=== PATIENT | female | born 1985 | race Caucasian/White ===

== ENCOUNTER 2019-03-29 08:58 | Outpatient (CLI) | payer BC ==
--- NOTE | 2019-03-29 09:31 | ULT ---
LIMITED RIGHT BREAST ULTRASOUND: Date: 03-29-19 Provided Clinical History: Right breast palpable abnormality. FINDINGS: Limited sonographic interrogation was performed at the 10 o'clock position of the right breast. The b reast parenchyma in this region demonstrates a normal sonographic appearance. IMPRESSION: No sonographic correlate for the reported palpable abnormality. Correlation with diagnostic mammograp hy is recommended. POS: OFF
--- NOTE | 2019-03-29 09:51 | ULT ---
LIMITED LEFT BREAST ULTRASOUND: Date: 03-29-19 Provided Clinical History: Left breast palpable abnormality. FINDINGS: Limited sonographic interrogation was performed of the left breast in the region of palpable concern. A 5-6 mm simple cyst is seen in this location. No concerning sonographic findings are evident. IMPRESSION: No concerning sonographic findings are present in the region of palpable concern. Correlation with di agnostic mammography. POS: OFF
== END 2019-03-29 08:59 | disposition home or self-care (01) ==
LOC: BICULT 08:58
PROVIDERS: ATTEND Student in an Organized Health Care Education/Training Program
DX: N63.10 Unspecified lump in the right breast, unspecified quadrant (principal)

== ENCOUNTER 2019-10-07 07:24 | Inpatient (IN) | payer BC ==
[2019-10-07 07:55] VITALS: BMI 29.0
[2019-10-07 08:20] LABS: Amnisure Test RUPTURE DETECTED (No Rupture)
[2019-10-07 08:21] LABS: Amnisure Internal Control QC ACCEPTABLE (ACCEPTABLE)
[2019-10-07] MEDS ORDERED: Methylergonovine 0.2 MG/ML VIAL IM PRN ×2 (08:34→19:42)
[2019-10-07] MEDS ORDERED: HYDROcodone/Acetaminophen 5/325 mg Tablet PO PRN ×4 (08:34→19:42)
[2019-10-07] MEDS ORDERED: Promethazine HCl 25 MG/ML VIAL IM PRN ×2 (08:34→16:33)
[2019-10-07] MEDS ORDERED: Misoprostol 200 MCG TAB PR PRN (08:34)
[2019-10-07] MEDS ORDERED: Ondansetron PF 4 MG/2 ML Vial IVP PRN ×3 (08:34→19:42)
[2019-10-07] MEDS ORDERED: hydrALAZINE 20 MG/ML VIAL SLOW IVP PRN ×2 (08:34→19:42)
[2019-10-07] MEDS ORDERED: Acetaminophen 500 MG TAB PO PRN (08:34)
[2019-10-07] MEDS ORDERED: Butorphanol Tartrate 1 MG/ML VIAL SLOW IVP PRN (08:34)
[2019-10-07] MEDS ORDERED: Lidocaine 1% (PF) 30 ML VIAL SC PRN (08:34)
[2019-10-07] MEDS ORDERED: Carboprost 250 MCG/ML AMP IM PRN (08:34)
[2019-10-07] MEDS ORDERED: Ibuprofen 800 MG TAB PO PRN (08:34)
[2019-10-07] MEDS ORDERED: NS / Oxytocin 40 units/1000ml 1,000 ML IV PRN (08:34)
[2019-10-07] MEDS ORDERED: Diphenoxylate HCl/Atropine Tablet PO PRN ×2 (08:34)
[2019-10-07] MEDS ORDERED: NS w/ Oxytocin 10 units 500 ML IV SCH (08:45)
[2019-10-07] MEDS ORDERED: Penicillin G Potassium 5 MILL.UNITS in Sodium Chloride 0.9% 100 ML IVPB SCH (08:45)
[2019-10-07] MEDS ORDERED: Penicillin G Potassium 5 MILL.UNITS VIAL ONE (09:01)
[2019-10-07 09:07] LABS: Hemoglobin 13.6 g/dL (12.0-16.0); Mean Corpuscular HGB CONC 34.6 g/dL (32.0-36.0); Mean Corpuscular Hemoglobin 33.3 pg (27.0-31.0); Mean Corpuscular Volume 96.2 fL (78.0-98.0); Mean Platelet Volume 9.5 fL (7.4-10.4); Platelet Count 170 thou/uL (130-400); RBC Distribution Width 12.5 % (11.5-14.5); Red Blood Cell (RBC) Count 4.09 mill/uL (4.20-5.40); White Blood Cell (WBC) Count 10.5 thou/uL (4.8-10.8)
[2019-10-07] MEDS: Lactated Ringer's 1,000 ML IV SCH ×3 (09:11→18:07)
[2019-10-07 09:41] LABS: Syphilis Antibody Nonreactive (Nonreactive); Syphilis Antibody Index 0.05 S/CO (<1.00 Non-Reactive)
[2019-10-07 09:42] LABS: HBSAg Index 0.14 S/CO (0-0.99); Hep B Surf Ag Non-Reactive S/CO (NonReactive)
[2019-10-07] MEDS: Penicillin G 2.5 MILL.units 2.5 MILL.UNITS in Premix Bag 1 BAG IVPB SCH ×3 (13:10→21:12)
[2019-10-07] MEDS ORDERED: Fentanyl 4 mcg/Bup 0.1% Cadd 100 ML ONE (16:01)
[2019-10-07] MEDS ORDERED: Fentanyl 100 MCG/2 ML VIAL ONE (16:09)
[2019-10-07] MEDS ORDERED: Naloxone HCl 0.4 mg/ml Vial IVP PRN ×2 (16:33)
[2019-10-07] MEDS ORDERED: diphenhydrAMINE 50 MG/ML VIAL IVP PRN (16:33)
[2019-10-07] MEDS ORDERED: ePHEDrine/0.9% NaCl/PF SYRINGE 50 mg/10 ml SLOW IVP PRN (16:33)
[2019-10-07] MEDS ORDERED: Lactated Ringer's 500 ML IV PRN (16:33)
[2019-10-07] MEDS ORDERED: Acetaminophen 325 MG TAB PO PRN (16:33)
[2019-10-07] MEDS ORDERED: Fentanyl 4 mcg/Bupivacaine 0.1% Cassette 100 ML EPIDURAL SCH (16:45)
[2019-10-07] MEDS ORDERED: Communication Order-Pharmacy FS PRN (16:45)
[2019-10-07] MEDS ORDERED: Lidocaine 1% (PF) 30 ML VIAL ONE (19:22)
[2019-10-07] MEDS ORDERED: NS / Oxytocin 40 units/1000ml 1,000 ML ONE (19:22)
[2019-10-07] MEDS ORDERED: Bisacodyl 10 MG SUPP PR PRN (19:42)
[2019-10-07] MEDS ORDERED: Zolpidem Tartrate 5 MG TAB PO PRN (19:42)
[2019-10-07] MEDS ORDERED: Misoprostol 200 MCG TAB VAG PRN (19:42)
[2019-10-07] MEDS ORDERED: Milk Of Magnesia 30 ML UDCUP PO PRN (19:42)
[2019-10-07] MEDS ORDERED: Preparation H Ointment 28 GM TUBE PR PRN (19:42)
[2019-10-07] MEDS ORDERED: Benzocaine-Menthol 82.5 ML CAN TOP PRN (19:42)
[2019-10-07] MEDS ORDERED: diphenhydrAMINE 25 MG CAP PO PRN (19:42)
--- NOTE | 2019-10-07 19:44 | PDOC.OPDEL ---
OB Operative/Delivery Note Delivery Dr/Surgeon: Theo Pre-Delivery Diagnosis: ruptured membrane Procedure/Post Delivery Dx: spontaneous vaginal delivery Weeks gestation: 37 Anesthesia: epidural - Findings A Sex: female (Schneider) Weight: 6 lb 14 oz - 1 min: 8 - 5 min: 8 - Additional Findings/Plan Placenta delivered: spontaneous Repaired Obstetrical Laceration: none Estimated blood loss: QBL 10ml Post delivery plan: routine recovery
[2019-10-07] MEDS ORDERED: NS / Oxytocin 40 units/1000ml 1,000 ML IV SCH (19:45)
[2019-10-07] MEDS: Docusate Calcium (SURFAK) 240 MG CAP PO SCH (21:12)
[2019-10-07] MEDS: Ibuprofen 800 MG TAB PO SCH (22:00)
[2019-10-08] MEDS: Ibuprofen 800 MG TAB PO SCH ×3 (06:34→22:18)
[2019-10-08] MEDS ORDERED: Measles/Mumps/Rubella 10 MCG/0.5 ML VIAL SC ONE (09:00)
[2019-10-08] MEDS ORDERED: Varicella virus, LIVE 0.5 ML VIAL SC ONE (09:00)
[2019-10-08] MEDS ORDERED: Adacel (T-DAP) 0.5 ML SYRINGE IM ONE (09:00)
[2019-10-08] MEDS: Ferrous Sulfate 325 MG TAB PO SCH ×2 (09:03→18:25)
--- NOTE | 2019-10-08 09:31 | PDOC.LDHP ---
Labor and Delivery H&P Chief complaint: loss of fluid HPI: 34yo at 37w2d by LMP here with c/o ROM at 0600, clear fluid. Occ ctx. Good FM, no VB Current gestational age (weeks): 37 Dating criteria: last menstrual period Grav: 2 Para: 1 Current complications: none Abnormal US findings: No Past Medical History: denies Current medications: pre- vitamins Allergies/Adverse Reactions: Allergies Allergy/AdvReac Type Severity Reaction Status Date / Time No Known Allergies Allergy Verified 10/07/19 07:54 Social history: none - Physical Exam Vital signs reviewed and normal: yes General: NAD Heart: RRR Lungs: CTAB Abdomen: gravid Extremeties: no edema FHT: category 1 [place] contractions every: 5-7min - Vaginal Exam cm dilated: 3 Effacement: 75% Station: -1 - OB Labs Blood type: B RH: positive Antibody Screen: negative HIV: negative RPR: negative HEPSAg: negative 1 hour GCT: negative GBS: positive Urine drug screen: negative Rubella: immune - Assessment L&D Assessment: term rupture in membranes - Plan Plan: admit to L&D, labor augmentation if indicated, GBS antibiotic prophylaxis , informed consent obtained, anesthesia consult for pain management
--- NOTE | 2019-10-08 09:31 | PDOC.PP ---
Post Progress Note Post Day #: 1 PO intake tolerated: yes Flatus: yes Ambulation: yes Vital Signs (12 hours) Temp Pulse Resp BP Pulse Ox 10/08/19 07:49 97.9 F 76 20 105/56 L 97 10/07/19 23:25 97 10/07/19 23:20 98.3 F Weight Weight 185 lb Result Diagrams: 10/07/19 08:56 Additional Labs: Post Labs Blood Type B POSITIVE 10/07/19 10:02 Hep Bs Antigen Non-Reactive S/CO (NonReactive) 10/07/19 08:56
[2019-10-08] MEDS: Docusate Calcium (SURFAK) 240 MG CAP PO SCH ×2 (11:53→22:18)
[2019-10-09] MEDS: Ibuprofen 800 MG TAB PO SCH ×2 (06:09→14:31)
[2019-10-09 08:17] VITALS: BP 109/61; TEMP 98.4
[2019-10-09] MEDS: Ferrous Sulfate 325 MG TAB PO SCH (08:42)
[2019-10-09] MEDS: Docusate Calcium (SURFAK) 240 MG CAP PO SCH (08:42)
--- NOTE | 2019-10-09 08:47 | PDOC.PP ---
Post Progress Note Post Day #: 2 PO intake tolerated: yes Flatus: yes Ambulation: yes Vital Signs (12 hours) Temp Pulse Resp BP Pulse Ox 10/09/19 08:16 98.4 F 80 20 109/61 98 Weight Weight 185 lb - Physical Examination General: NAD Respiratory: non-labored breathing Abdominal: no distention, appropriately TTP Fundus firm & at: umb-2 Extremities: negative homans (B) Neurological: no gross focal deficits Psychiatric: normal affect Result Diagrams: 10/07/19 08:56 Additional Labs: Post Labs Blood Type B POSITIVE 10/07/19 10:02 Hep Bs Antigen Non-Reactive S/CO (NonReactive) 10/07/19 08:56 - Assessment/Plan PPD2 s/p TSVD VSSAF Doing well lochia < menses Rh pos RImm DC home FU 6w
== END 2019-10-09 14:05 | disposition home or self-care (01) | DRG 807 ==
LOC: L&D/OP 07:24 → L&D 19:44 → 3SE 23:12
PROVIDERS: ADMIT Student in an Organized Health Care Education/Training Program; ATTEND Student in an Organized Health Care Education/Training Program
PROC: 10E0XZZ Delivery of Products of Conception, External Approach (ICD-10-PCS; principal; 2019-10-07)
DX: O42.92 Full-term premature rupture of membranes, unspecified as to length of time between rupture and onset of labor (principal); Z37.0 Single live birth; Z3A.37 37 weeks gestation of pregnancy; O99.824 Streptococcus B carrier state complicating childbirth
CPT/HCPCS: 36415; 51702; 84112; 85027; 86780; 86850; 86900; 86901; 87340; 99285; J2001; J2405; J2540; J2590; J3010